=== PATIENT | male | born 1975 | race Caucasian/White ===

== ENCOUNTER 2023-10-29 17:37 | Emergency (ER) | payer BC ==
[2023-10-29 18:12] LABS: BASOPHILS PERCENT AUTO 0.1 % (0.0-1.0); EOSINOPHILS PERCENT AUTO 1.5 % (1.0-3.0); HEMATOCRIT 46.9 % (40.0-54.0); HEMOGLOBIN 15.7 g/dL (14.0-18.0); LYMPHOCYTES PERCENT AUTO 12.8 % (20.5-50.1); MEAN CORPUSCULAR HEMOGLOBIN 28.3 pg (27.0-34.0); MEAN CORPUSCULAR HGB CONC 33.5 g/dL (33.0-35.0); MEAN CORPUSCULAR VOLUME 84.5 fL (80-100); MONOCYTES PERCENT AUTO 6.5 % (2-8); NEUTROPHILS PERCENT AUTO 79.1 % (42.2-75.2); PLATELET COUNT,PLT 192 10^3/uL (150-450); RED BLOOD CELL COUNT 5.55 10^6/uL (4.6-6.2); WHITE BLOOD CELL COUNT,WBC 15.7 10^3/uL (5.0-10.0)
[2023-10-29] MEDS: Sodium Chloride 0.9% 1,000 ML IV SCH (18:32)
[2023-10-29] MEDS: Sodium Chloride 0.9% 10 ML Syringe FLUSH PRN (18:32)
[2023-10-29 18:41] LABS: A/G RATIO 1.6; ALBUMIN 4.6 g/dL (3.4-5.0); ANION GAP 20.8 mEq/L (7-13); BILIRUBIN TOTAL 1.4 mg/dL (0.2-1.0); BUN/CREATININE RATIO 16.1 (No establ ref range); CALCIUM 9.8 mg/dL (8.5-10.1); CREATININE 1.43 mg/dL (0.70-1.30); EST CRCL DRUG DOSING (CG) 67.83 mL/min; POTASSIUM,K 3.8 mmol/L (3.5-5.1); PROTEIN TOTAL,TP 7.5 g/dL (6.4-8.2)
== END 2023-10-29 18:58 | disposition home or self-care (01) ==
LOC: DL.ED 17:37
DX: E11.649 Type 2 diabetes mellitus with hypoglycemia without coma (principal)
CPT/HCPCS: 36415; 80053; 84484; 85025; 99284; J7030; J3490